=== PATIENT | female | born 1970 | race Caucasian/White ===

== ENCOUNTER 2017-07-17 20:16 | Emergency (ER) | payer SELFPAY ==
[2017-07-17 20:20] VITALS: BP 192/104; PULSE 97; RESP 18; TEMP 36.9; O2SAT 100; BMI 35.4
--- NOTE | 2017-07-17 20:26 | ED.DENTAL ---
HPI - Dental/Oral <Kary Schuster PA-C - Last Filed: 07/17/17 21:56> General Chief complaint: Dental/Oral Stated complaint: ABCESS TOOTH Time Seen by Provider: 07/17/17 20:26 Source: patient Mode of arrival: ambulatory Limitations: no limitations History of Present Illness HPI Narrative: This 47-year-old female comes in due to dental pain and concern for infection. She states that she has a long history of dental problems, but seemed okay until a week ago she began to have worsening pain again in her left back teeth. She does not have a dentist, but made an appointment for the [facility] on Wednesday. She states pain started on the left upper molar area and now can feel in her lower teeth as well. She states that this radiates into the jaw and ear area. She thinks the gums are swollen. She denies any fever. She has some allergies but no recent upper respiratory symptoms such as congestion, sinus pain or cough. She denies any other complaints today. She has been taking ibuprofen 400 mg and using MS all but still having persistent pain Related Data Home Medications Medication Instructions Recorded Confirmed [id number]-iyxprbaa-pet 07/17/17 [Anbesol Cold Sore] ibuprofen 400 mg PO 07/17/17 Previous Rx's Medication Instructions Recorded cyclobenzaprine 10 mg PO TID PRN #30 tab 09/12/15 naproxen [Naprosyn] 500 mg PO BIDCC #60 tab 09/12/15 amoxicillin-pot clavulanate 1 tab PO BID #14 tab 07/17/17 [Augmentin] Allergies Allergy/AdvReac Type Severity Reaction Status Date / Time GENERIC: NKDA - NO KNOWN Allergy Unknown Uncoded 05/26/17 11:56 DRUG ALLERGIES Review of Systems <Kary Schuster PA-C - Last Filed: 07/17/17 21:56> Review of Systems All systems reviewed & are unremarkable except as noted in HPI and below Exam <Kary Schuster PA-C - Last Filed: 07/17/17 21:56> Narrative Exam Narrative: GENERAL APPEARANCE: Patient sitting comfortably, in no distress. HEAD: No sinus TTP. EYES: PERRL, EOMI. EARS: Normal auditory canals, TMS intact with normal light reflexes. ORAL CAVITY: Left upper 2nd molar and lower molars it looks like there cavities that there may be a little bit of pulp exposed on the upper molar. There is some edema and tenderness in the surrounding gum line around the upper more. No fluctuance or drainage. THROAT: Clear. NECK/THYROID: Neck supple, full range of motion, no cervical lymphadenopathy. LUNGS: Clear to auscultation bilaterally, clear to percussion, no cough on exam. HEART: RRR without murmur, nl S1, S2, no S3 or S4. Initial Vital Signs Initial Vital Signs: Vital Signs Temperature 98.4 F 07/17/17 20:20 Pulse Rate 97 H 07/17/17 20:20 Respiratory Rate 18 07/17/17 20:20 Blood Pressure 192/104 H 07/17/17 20:20 Pulse Oximetry 100 07/17/17 20:20 <Song Burns DO - Last Filed: 07/18/17 01:17> Initial Vital Signs Initial Vital Signs: Vital Signs Temperature 98.4 F 07/17/17 20:20 Pulse Rate 97 H 07/17/17 20:20 Respiratory Rate 18 07/17/17 20:20 Blood Pressure 192/104 H 07/17/17 20:20 Pulse Oximetry 100 07/17/17 20:20 Course <Kary Schuster PA-C - Last Filed: 07/17/17 21:56> Orders Ordered: Discontinued Medications Amoxicillin/Clavulanate Potassium (Augmentin 875-125 Mg) 1 tab PO NOW ONE Stop: 07/17/17 20:55 Last Admin: 07/17/17 21:02 Dose: 1 tab Ibuprofen (Advil) 400 mg PO NOW ONE Stop: 07/17/17 20:55 Last Admin: 07/17/17 21:02 Dose: 400 mg Lorazepam (Ativan) 1 mg PO NOW ONE Stop: 07/17/17 20:50 Vital Signs - 8 hr 07/17/17 20:20 07/17/17 21:24 Temperature 98.4 F Pulse Rate 97 H 80 Respiratory Rate 18 16 Blood Pressure 192/104 H 166/72 H Pulse Oximetry 100 99 <DO Gagan Waters Last Filed: 07/18/17 01:17> Orders Ordered: Discontinued Medications Amoxicillin/Clavulanate Potassium (Augmentin 875-125 Mg) 1 tab PO NOW ONE Stop: 07/17/17 20:55 Last Admin: 07/17/17 21:02 Dose: 1 tab Ibuprofen (Advil) 400 mg PO NOW ONE Stop: 07/17/17 20:55 Last Admin: 07/17/17 21:02 Dose: 400 mg Lorazepam (Ativan) 1 mg PO NOW ONE Stop: 07/17/17 20:50 Vital Signs - 8 hr 07/17/17 20:20 07/17/17 21:24 Temperature 98.4 F Pulse Rate 97 H 80 Respiratory Rate 18 16 Blood Pressure 192/104 H 166/72 H Pulse Oximetry 100 99 Discharge Plan Departure Patient Disposition: Home, Self-Care Clinical Impression: Infected dental caries Discharge Date/Time: 07/17/17 21:24 Interventions: ED Discharge Assessment Last Done: 07/17/17 21:24 Activity Restrictions/Additional Instructions: Increase your Ibuprofen to 800mg every 8 hours with food. 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 Continue the ambesol (you can put it on the gauze pads I gave you and hold it between the sore teeth.) Return if you have any acutely worsening symptoms such as fever or facial swelling Prescriptions: New amoxicillin-pot clavulanate [Augmentin] 875-125 mg tablet 1 tab PO BID Qty: 14 RF: 0 No Action cyclobenzaprine 10 MG tablet 10 mg PO TID PRNQty: 30 RF: 0 naproxen [Naprosyn] 500 MG tablet 500 mg PO BIDCC Qty: 60 RF: 0 megftnzsm-tzesukr-kkifvrcd-pet [Anbesol Cold Sore] 20-3-1-64.9 % Ointment RF: 0 ibuprofen 400 mg Tablet 400 mg PO RF: 0 Referrals: [facility] [Other] <Song Burns DO - Last Filed: 07/18/17 01:17> Cosign ED Attending Mayte Attestation: I was immediately available in the department for consultation. Documentation has been reviewed. I agree with assessment and plan.
[2017-07-17] MEDS: AMOXICILLIN/CLAV 875/125 MG 1 TAB PO (21:02)
[2017-07-17] MEDS: IBUPROFEN 400 MG TABLET PO (21:02)
[2017-07-17 21:24] VITALS: BP 166/72; PULSE 80; RESP 16; O2SAT 99
== END 2017-07-17 21:24 | disposition home or self-care (01) ==
PROVIDERS: Emergency Provider Internal Medicine; Family Provider Family Medicine; PCP Family Medicine
DX: K02.9 Dental caries, unspecified (principal)
CPT/HCPCS: 99282; 99283

== ENCOUNTER 2017-10-02 18:08 | Emergency (ER) | payer SELFPAY ==
[2017-10-02 18:15] VITALS: BP 143/90; PULSE 91; RESP 20; TEMP 36.2; O2SAT 98
--- NOTE | 2017-10-02 19:35 | ED_ITS ---
HPI - Back Pain/Injury <Kary Schuster PA-C - Last Filed: 10/02/17 22:05> General Chief Complaint: Back Pain/Injury Stated Complaint: back pain worstening Time Seen by Provider: 10/02/17 19:33 Source: patient Mode of arrival: ambulatory Limitations: no limitations History of Present Illness HPI Narrative: This 47-year-old female comes in due to worsening left-sided back pain that radiates around to her flank and lower abdomen/groin area. She states that this started about 6 days ago, and thought it was just her usual menstrual cramps that she feels in her back. This seemed to get better, but then has gotten worse again in the last few days. She states that she has the pain constantly, but it is worse with movement. She states that she has not had any new trauma. She does bend and lift at work, but has not had any pain with that, actually awoke with the pain initially. She states that she has not had any nausea or vomiting. Denies fever. She denies radiation of pain into the extremities, no paresthesia or weakness. She denies any new bowel or bladder dysfunction. She denies any urinary symptoms or hematuria. She denies any possibility of (partner has had vasectomy). She describes the pain as spasmodic, like labor. She denies any other symptoms such as chest pain or dyspnea on systems review Related Data Home Medications Medication Instructions Recorded Confirmed [id number]-dajecdcz-pet 07/17/17 [Anbesol Cold Sore] ibuprofen 400 mg PO 07/17/17 Previous Rx's Medication Instructions Recorded cyclobenzaprine 10 mg PO TID PRN #30 tab 09/12/15 naproxen [Naprosyn] 500 mg PO BIDCC #60 tab 09/12/15 amoxicillin-pot clavulanate 1 tab PO BID #14 tab 07/17/17 [Augmentin] cyclobenzaprine 10 mg PO Q8H PRN #10 tab 10/02/17 Allergies Allergy/AdvReac Type Severity Reaction Status Date / Time GENERIC: NKDA - NO KNOWN Allergy Unknown Uncoded 05/26/17 11:56 DRUG ALLERGIES Review of Systems <Kary Schuster PA-C - Last Filed: 10/02/17 22:05> Review of Systems All systems reviewed & are unremarkable except as noted in HPI and below PFSH <Kary Schuster PA-C - Last Filed: 10/02/17 22:05> Comment: Rare ETOH, denies street drugs Exam <Kary Schuster PA-C - Last Filed: 10/02/17 22:05> Narrative Exam Narrative: GENERAL APPEARANCE: Patient appears mildly uncomfortable, in NAD HEENT: PERRL, EOMI, no scleral icterus NECK: Supple LUNGS: Clear to auscultation bilaterally. HEART: Rate and rhythm regular, normal S1 and S2, no S3 or S4. ABDOMEN: Soft, nondistended, bowel sounds present x 4 quadrants, no masses palpable, no hepatosplenomegaly. No right CVAT. Mild tenderness inferior to the left CVA, also moderate tenderness over the left flank and left lateral lower quadrant. No rebound or guarding EXTREMITIES: No edema, no cyanosis DERMATOLOGIC: No jaundice or exanthem NEUROLOGIC: Alert and oriented with normal speech and coordination MS: No point tenderness over LS spine, mild tenderness over L. inferior L/S musculature laterally. Following medications normal sit to stand and gait Initial Vital Signs Initial Vital Signs: Vital Signs Temperature 97.1 F L 10/02/17 18:15 Pulse Rate 91 H 10/02/17 18:15 Respiratory Rate 20 10/02/17 18:15 Blood Pressure 143/90 H 10/02/17 18:15 Pulse Oximetry 98 10/02/17 18:15 <Capo hSields DO - Last Filed: 10/02/17 22:10> Initial Vital Signs Initial Vital Signs: Vital Signs Temperature 97.1 F L 10/02/17 18:15 Pulse Rate 91 H 10/02/17 18:15 Respiratory Rate 20 10/02/17 18:15 Blood Pressure 143/90 H 10/02/17 18:15 Pulse Oximetry 98 10/02/17 18:15 Course <TONIA Daily Last Filed: 10/02/17 22:05> Additional Information: Reviewed normal CT findings with patient. She does have some chronic back pain typically worsened by menses, and does lift and bend frequently at work. Suspect strain and spasm. Also discussed that there could be other contributors. She is feeling significantly better after medications. We had planned to give Flexeril which she states has been helpful in the past but felt better prior, so we sent her home with a prepack of this for tonight. She agreed to return if any new or acutely worsening symptoms. Orders Ordered: ED Orders 10/02/17 19:50 CT kidney ureter bladder (KUB) Stat 10/02/17 20:25 Urinalysis and Microscopic Stat Discontinued Medications Cyclobenzaprine HCl (Flexeril) 10 mg PO NOW ONE Stop: 10/02/17 20:38 Last Admin: 10/02/17 20:59 Dose: Cyclobenzaprine HCl (Flexeril 10 Mg Prepack) 1 bottle MISC SEEINSTR ONE Stop: 10/02/17 21:02 Last Admin: 10/02/17 21:04 Dose: 1 bottle Cyclobenzaprine HCl (Flexeril 10 Mg Prepack) 1 bottle MISC SEEINSTR ONE Stop: 10/02/17 21:03 Last Admin: 10/02/17 21:03 Dose: Not Given Diphenhydramine HCl (Benadryl) 25 mg PO NOW ONE Stop: 10/02/17 19:48 Last Admin: 10/02/17 20:27 Dose: 25 mg Ketorolac Tromethamine (Toradol) 60 mg IM NOW ONE Stop: 10/02/17 19:48 Last Admin: 10/02/17 20:28 Dose: 60 mg Oxycodone/Acetaminophen (Percocet 5/325) 1 tab PO NOW ONE Stop: 10/02/17 19:48 Last Admin: 10/02/17 20:27 Dose: 1 tab Vital Signs - 8 hr 10/02/17 18:15 10/02/17 21:18 Temperature 97.1 F L Pulse Rate 91 H 90 Respiratory Rate 20 16 Blood Pressure 143/90 H 138/88 H Pulse Oximetry 98 100 <Capo Shields, DO - Last Filed: 10/02/17 22:10> Orders Ordered: ED Orders 10/02/17 19:50 CT kidney ureter bladder (KUB) Stat 10/02/17 20:25 Urinalysis and Microscopic Stat Discontinued Medications Cyclobenzaprine HCl (Flexeril) 10 mg PO NOW ONE Stop: 10/02/17 20:38 Last Admin: 10/02/17 20:59 Dose: Cyclobenzaprine HCl (Flexeril 10 Mg Prepack) 1 bottle MISC SEEINSTR ONE Stop: 10/02/17 21:02 Last Admin: 10/02/17 21:04 Dose: 1 bottle Cyclobenzaprine HCl (Flexeril 10 Mg Prepack) 1 bottle MISC SEEINSTR ONE Stop: 10/02/17 21:03 Last Admin: 10/02/17 21:03 Dose: Not Given Diphenhydramine HCl (Benadryl) 25 mg PO NOW ONE Stop: 10/02/17 19:48 Last Admin: 10/02/17 20:27 Dose: 25 mg Ketorolac Tromethamine (Toradol) 60 mg IM NOW ONE Stop: 10/02/17 19:48 Last Admin: 10/02/17 20:28 Dose: 60 mg Oxycodone/Acetaminophen (Percocet 5/325) 1 tab PO NOW ONE Stop: 10/02/17 19:48 Last Admin: 10/02/17 20:27 Dose: 1 tab Vital Signs - 8 hr 10/02/17 18:15 10/02/17 21:18 Temperature 97.1 F L Pulse Rate 91 H 90 Respiratory Rate 20 16 Blood Pressure 143/90 H 138/88 H Pulse Oximetry 98 100 MDM - Back Pain/Injury <Kary Schuster PA-C - Last Filed: 10/02/17 22:05> Lab Data Lab Results 10/02/17 Range/Units 20:25 Urine Color Yellow Urine Appearance Clear Urine pH 5.0 (4.5-8.0) Ur Specific [place] 1.025 (1.000-1.035) Urine Protein Negative (Negative) Urine Glucose (UA) Negative (Normal) g/dL Urine Ketones Negative (NEGATIVE) Urine Occult Blood Trace-lysed (Negative) Urine Nitrate Negative (Negative) Urine Bilirubin Negative (NEGATIVE) Urine Urobilinogen 0.2 (0.2) E.U./dL Ur Leukocyte Esterase Negative (NEGATIVE) Urine RBC 1-5/hpf (0-5/HPF) Urine WBC None seen (0-5/HPF) Ur Squamous Epith Cells 1-5 /hpf Urine Bacteria None seen (None) Urine Mucus 1+ H (Negative) Ur Culture Indicated? Not Reportable Micro UA Comment Not Reportable Imaging Data CT scan - abdomen: Radiologist's impression: View Report History [address] [address] [address] Scan Report Signed Patient: Nicky Munoz MR#: [id number] : 1970 Acct:[id number] Age/Sex: 47 / F Date of Service: 10/02/17 Loc: ED Accession Number: [id number] Procedure: CT kidney ureter bladder (KUB) Ordering Provider: Kary Schuster P.A-C PROCEDURE: CT KIDNEY URETER BLADDER (KUB) INDICATIONS: L. flank/groin pain, ?stone TECHNIQUE: Noncontrast 5 mm thick sections acquired from the diaphragms to the symphysis. 5 mm thick coronal and sagittal reformats were then performed. For radiation dose reduction, the following was used: automated exposure control, adjustment of mA and/or kV according to patient size. COMPARISON: None. FINDINGS: Image quality: Excellent. Lung bases: Lung bases are clear. Heart size is normal. Urinary system: Both kidneys are normal in size. No kidney stones. No hydronephrosis or perinephric fat stranding. Both ureters appear non-dilated throughout their expected courses. Bladder wall thickness is normal; no calcified bladder stones. Other solid organs: Liver is normal in size. Gallbladder is within normal limits. Pancreas is normal in contours. Spleen is normal in size. No adrenal nodules. Peritoneum and bowel: Unenhanced bowel loops demonstrate normal wall thickness and caliber. No free fluid or air. Normal appendix. Nodes and vessels: No retroperitoneal or mesenteric adenopathy by size criteria. Aorta and inferior vena cava are normal in caliber. Abdominal wall: No ventral hernias. Pelvis: No free pelvic fluid. No inguinal hernias or adenopathy. Bones: No suspicious bony lesions. No vertebral body compression fractures. IMPRESSION: 1. No evidence of urinary tract calcification, nor obstruction. 2. Normal appendix. Dictated by: Ayden Levi M.D. on 10/02/2017 at 20:07 Approved by: Ayden Levi M.D. on 10/02/2017 at 20:08 <Capo Shields DO - Last Filed: 10/02/17 22:10> Lab Data Lab Results 10/02/17 Range/Units 20:25 Urine Color Yellow Urine Appearance Clear Urine pH 5.0 (4.5-8.0) Ur Specific [place] 1.025 (1.000-1.035) Urine Protein Negative (Negative) Urine Glucose (UA) Negative (Normal) g/dL Urine Ketones Negative (NEGATIVE) Urine Occult Blood Trace-lysed (Negative) Urine Nitrate Negative (Negative) Urine Bilirubin Negative (NEGATIVE) Urine Urobilinogen 0.2 (0.2) E.U./dL Ur Leukocyte Esterase Negative (NEGATIVE) Urine RBC 1-5/hpf (0-5/HPF) Urine WBC None seen (0-5/HPF) Ur Squamous Epith Cells 1-5 /hpf Urine Bacteria None seen (None) Urine Mucus 1+ H (Negative) Ur Culture Indicated? Not Reportable Micro UA Comment Not Reportable Discharge Plan Departure Patient Disposition: Home Clinical Impression: Low back pain, Muscle spasm Discharge Date/Time: 10/02/17 21:19 Interventions: ED Discharge Assessment Last Done: 10/02/17 21:18 Instructions: DI for Low Back Pain Activity Restrictions/Additional Instructions: Your CT scan did not show any acute problem today such as a kidney stone that seems to be causing your back pain. Given your history, this may be an exacerbation of that pain along with muscle spasm. Since you are feeling better , it is okay to monitor at home. Starting tomorrow, take 800 mg of ibuprofen every 8 hr, and you can use the cyclobenzaprine (Flexeril) as needed for spasm. Do not drive while taking that as it may make you sleepy. Gentle walking is okay, but please avoid bending, twisting, and lifting for the next few days. You should follow up with your PCP for recheck to determine whether any further treatment or testing is necessary, i.e. for pelvic problems since your back pain seems to be worse related to your menses. Please return as we talked about if you have any acutely worsening symptoms, or new symptoms such as fever or vomiting Prescriptions: New cyclobenzaprine 10 mg tablet 10 mg PO Q8H PRN (Reason: muscle spasm) Qty: 10 RF: 0 No Action cyclobenzaprine 10 MG tablet 10 mg PO TID PRNQty: 30 RF: 0 naproxen [Naprosyn] 500 MG tablet 500 mg PO BIDCC Qty: 60 RF: 0 lyaaobclv-gpuzlvh-nabnoxzu-pet [Anbesol Cold Sore] 20-3-1-64.9 % Ointment RF: 0 ibuprofen 400 mg Tablet 400 mg PO RF: 0 amoxicillin-pot clavulanate [Augmentin] 875-125 mg tablet 1 tab PO BID Qty: 14 RF: 0 Referrals: Ronan Lindsay MD [Primary Care Provider] - <Capo Shields DO - Last Filed: 10/02/17 22:10> Cosign ED Attending Mayte Attestation: I was available for consultation during this patient's emergency department encounter
--- NOTE | 2017-10-02 19:50 | DI.CT.S_ITS ---
PROCEDURE: CT KIDNEY URETER BLADDER (KUB) INDICATIONS: L. flank/groin pain, ?stone TECHNIQUE: Noncontrast 5 mm thick sections acquired from the diaphragms to the symphysis. 5 mm thick coronal and sagittal reformats were then performed. For radiation dose reduction, the following was used: automated exposure control, adjustment of mA and/or kV according to patient size. COMPARISON: None. FINDINGS: Image quality: Excellent. Lung bases: Lung bases are clear. Heart size is normal. Urinary system: Both kidneys are normal in size. No kidney stones. No hydronephrosis or perinephric fat stranding. Both ureters appear non-dilated throughout their expected courses. Bladder wall thickness is normal; no calcified bladder stones. Other solid organs: Liver is normal in size. Gallbladder is within normal limits. Pancreas is normal in contours. Spleen is normal in size. No adrenal nodules. Peritoneum and bowel: Unenhanced bowel loops demonstrate normal wall thickness and caliber. No free fluid or air. Normal appendix. Nodes and vessels: No retroperitoneal or mesenteric adenopathy by size criteria. Aorta and inferior vena cava are normal in caliber. Abdominal wall: No ventral hernias. Pelvis: No free pelvic fluid. No inguinal hernias or adenopathy. Bones: No suspicious bony lesions. No vertebral body compression fractures. IMPRESSION: 1. No evidence of urinary tract calcification, nor obstruction. 2. Normal appendix. Dictated by: Ayden Levi M.D. on 10/02/2017 at 20:07 Approved by: Ayden Levi M.D. on 10/02/2017 at 20:08
[2017-10-02] MEDS: diphenhydrAMINE 25 MG TABLET PO (20:27)
[2017-10-02] MEDS: OXYCODONE/ACETAMINOPHEN 5/325 TABLET 1 TAB PO (20:27)
[2017-10-02] MEDS: KETOROLAC 60 MG/2 ML VIAL IM (20:28)
[2017-10-02 20:37] LABS: Bacteria Urine None Seen; WBC Urine None Seen (0-5/HPF)
[2017-10-02 20:44] LABS: Appearance Urine UA CLEAR; Bilirubin Urine UA NEGATIVE (NEGATIVE); Color Urine UA YELLOW; Glucose Urine UA NEGATIVE (Normal); Ketones Urine UA NEGATIVE (NEGATIVE); Leukocyte Esterase Urine UA NEGATIVE (NEGATIVE); Nitrite Urine UA Negative (Negative); Occult Blood Urine UA TRACE-LYSED (Negative); Protein Urine UA NEGATIVE (Negative); Specific Gravity Urine UA 1.025 (1.000-1.035); Urobilinogen Urine UA 0.2 E.U./dL (0.2)
[2017-10-02 20:51] LABS: Mucus Urine 1+ (Negative); RBC Urine 1-5/HPF (0-5/HPF); Squamous Epithelial Cell Urine 1-5 /HPF
[2017-10-02] MEDS: CYCLOBENZAPRINE 10 MG PREPACK 1 BOTTLE MISC (21:04)
[2017-10-02 21:18] VITALS: BP 138/88; PULSE 90; RESP 16; O2SAT 100
== END 2017-10-02 21:19 | disposition home or self-care (01) ==
PROVIDERS: Emergency Provider Internal Medicine; Family Provider Family Medicine; PCP Family Medicine
DX: M62.830 Muscle spasm of back (principal); M54.5 Low back pain
CPT/HCPCS: 74176; 81001; 81025; 96372; 99282; 99284; J1885

== ENCOUNTER 2022-02-27 14:41 | Emergency (ER) | payer OTHER, SELFPAY ==
[2022-02-27 14:47] VITALS: BP 180/120; PULSE 86; RESP 16; TEMP 36.5; O2SAT 96; BMI 36.8
--- NOTE | 2022-02-27 17:16 | PC.NURSE ---
Pt reports 4 days of left groin/thigh pain/seven horse. Had been moving stuff around the garage. States lying down decreases the pain, but then my back goes out. Took 1000mg ibuprofen at 1400. Denies numbness/tingling.
--- NOTE | 2022-02-27 18:17 | DI.RAD.S_ITS ---
PROCEDURE: XR LUMBAR SPINE 2-3V INDICATIONS: low back pain w/ left sciatica TECHNIQUE: 3 views of the lumbar spine were acquired. COMPARISON: None. FINDINGS: Bones: 5 hjz-tbe-[id number] vertebrae are present. There is normal bony alignment. No vertebral body compression fractures. No suspicious bony lesions. Multilevel disc space narrowing degenerative endplate changes are seen. There is multilevel facet hypertrophy. Soft tissues: Overlying bowel gas pattern is normal. No suspicious soft tissue calcifications. IMPRESSION: Multilevel spondylosis. No acute osseous abnormality. If the symptoms persist, consider cross sectional imaging such as MRI or CT for further assessment. Approved by: Nico Ennis M.D. on 02/27/2022 at 19:14
[2022-02-27] MEDS: OXYCODONE/ACETAMINOPHEN 5/325 TABLET 1 TAB PO (18:34)
[2022-02-27] MEDS: methocarbamoL 500 MG TABLET 750 MG PO (18:34)
[2022-02-27] MEDS: predniSONE 20 MG TABLET 40 MG PO (18:34)
[2022-02-27] MEDS: KETOROLAC 30 MG/ML VIAL IM (18:34)
--- NOTE | 2022-02-27 19:01 | ED.EXTPRO ---
HPI - Extremity Problem <Patricia Whatley [place]aby, UTILITY SYSTEMS REPAIRER OPERATOR - Last Filed: 02/27/22 19:51> General Chief complaint: Extremity Problem,Nontraumatic Stated complaint: LT leg feels like charley horse T-4 Time Seen by Provider: 02/27/22 18:16 Mode of arrival: Family Vehicle History of Present Illness HPI Narrative: This is a 51-year-old female who presents to the emergency department, my exam is approximately 6 hours after she checked in today, complains of working in her yd 4 days ago with worsening low back pain and anterior leg pain with radiation from her low back over the last 4 days. She denies weakness, states it feels like a Charley horse and muscle spasm. She denies any urinary retention or incontinence, denies any groin numbness, denies any fever, chills, upper respiratory infection, denies any weakness, states that she is ambulatory but sitting up painful, leg lift is even more painful. She denies history of alcohol or substance abuse, denies fever, chills, numbness or tingling anywhere. Related Data Home Medications Medication Instructions Recorded Confirmed benzocaine 20 %-camphor 3 07/17/17 %-allantoin 1%-petrolatum 64.9% top ointment (Anbesol Cold Sore) ibuprofen 400 mg tablet 400 mg PO 07/17/17 Previous Rx's Medication Instructions Recorded cyclobenzaprine 10 mg tablet 10 mg PO TID PRN #30 tabs 09/12/15 naproxen 500 mg tablet (Naprosyn) 500 mg PO BIDCC #60 tabs 09/12/15 amoxicillin 875 mg-potassium 1 tab PO BID #14 tabs 07/17/17 clavulanate 125 mg tablet (Augmentin) cyclobenzaprine 10 mg tablet 10 mg PO Q8H PRN muscle spasm #10 10/02/17 tabs lidocaine 5 % topical patch 1 patch topical DAILY PRN pain #15 02/27/22 (Lidoderm) ea methocarbamol 750 mg tablet 750 mg PO Q8H PRN muscle spasm #20 02/27/22 tabs naproxen 500 mg tablet 500 mg PO BID PRN pain #20 tabs 02/27/22 prednisone 20 mg tablet 20 mg PO DAILY #5 tabs 02/27/22 Allergies Allergy/AdvReac Type Severity Reaction Status Date / Time morphine Allergy ITCHING Verified 02/27/22 14:50 GENERIC: NKDA - NO KNOWN Allergy Unknown Uncoded 05/26/17 11:56 DRUG ALLERGIES Review of Systems <NAVI Silver - Last Filed: 02/27/22 19:51> Review of Systems ROS Unobtainable: All systems reviewed & are unremarkable except as noted in HPI and below Patient History <NAVI Silver - Last Filed: 02/27/22 19:51> Medical History Chronic back pain Fracture of fifth toe, left, closed Seasonal allergies Family History Mother Age: 77 Heart disease Social History Smoking Status: Current every day smoker Smoking Status: Current every day smoker alcohol intake frequency: holidays/special occasions only Substance Use Type: does not use Exam <NAVI Silver - Last Filed: 02/27/22 19:51> Narrative Exam Narrative: Reviewed vitals signs and nursing notes. General: cooperative, comfortable, in no acute distress, well groomed HEENT: symmetrical facial expressions, moist mucous membranes Cardiovascular: regular rate and rhythm, no peripheral edema, warm extremities Respiratory: normal effort, able to speak in complete sentences, without wheezing, stridor, or abnormal breath sounds. No retractions or tachypnea. GI: abdomen soft, nontender to palpation, nondistended, without masses, rebound tenderness or exquisite tenderness with exam. MSK: moves all extremities, neurovascularly intact, no weakness, normal tone no tenderness along lumbar spine, leg length exacerbates symptoms on left and right, hematoma or other palpable abnormality, no step-offs Skin: brisk capillary refill, without pallor or erythema Neuro: normal speech and cognition, A&O x3, ambulatory, clear speech Psych: mental status is grossly normal, congruent mood, normal affect, pleasant and cooperative Initial Vital Signs Initial Vital Signs: Vital Signs Temperature 97.7 F 02/27/22 14:47 Pulse Rate 86 02/27/22 14:47 Respiratory Rate 16 02/27/22 14:47 Blood Pressure 180/120 H 02/27/22 14:47 Pulse Oximetry 96 02/27/22 14:47 Oxygen Delivery Method 02/27/22 14:47 <Fatuma Rosario DO - Last Filed: 03/06/22 07:49> Initial Vital Signs Initial Vital Signs: Vital Signs Temperature 97.7 F 02/27/22 14:47 Pulse Rate 86 02/27/22 14:47 Respiratory Rate 16 02/27/22 14:47 Blood Pressure 180/120 H 02/27/22 14:47 Pulse Oximetry 96 02/27/22 14:47 Oxygen Delivery Method 02/27/22 14:47 Course <NAVI Silver - Last Filed: 02/27/22 19:51> Orders Ordered: Discontinued Medications Ketorolac Tromethamine (Ketorolac 30 Mg/Ml Vial) 30 mg IM NOW ONE Stop: 02/27/22 18:17 Last Admin: 02/27/22 18:34 Dose: 30 mg Documented By: NR Methocarbamol (Methocarbamol 500 Mg Tablet) 750 mg PO NOW ONE Stop: 02/27/22 18:18 Last Admin: 02/27/22 18:34 Dose: 750 mg Documented By: NR Oxycodone/Acetaminophen (Oxycodone/Acetaminophen 5/325 Tablet) 1 tab PO NOW ONE Stop: 02/27/22 18:27 Last Admin: 02/27/22 18:34 Dose: 1 tab Documented By: NR Prednisone (Prednisone 20 Mg Tablet) 40 mg PO NOW ONE Stop: 02/27/22 18:17 Last Admin: 02/27/22 18:34 Dose: 40 mg Documented By: NR Vital Signs Vital signs: Vital Signs - 8 hr 02/27/22 14:47 Temperature 97.7 F Pulse Rate 86 Respiratory Rate 16 Blood Pressure 180/120 H Pulse Oximetry 96 Oxygen Delivery Method Room Air <Fatuma Rosario DO - Last Filed: 03/06/22 07:49> Orders Ordered: Discontinued Medications Ketorolac Tromethamine (Ketorolac 30 Mg/Ml Vial) 30 mg IM NOW ONE Stop: 02/27/22 18:17 Last Admin: 02/27/22 18:34 Dose: 30 mg Documented By: NR Methocarbamol (Methocarbamol 500 Mg Tablet) 750 mg PO NOW ONE Stop: 02/27/22 18:18 Last Admin: 02/27/22 18:34 Dose: 750 mg Documented By: NR Oxycodone/Acetaminophen (Oxycodone/Acetaminophen 5/325 Tablet) 1 tab PO NOW ONE Stop: 02/27/22 18:27 Last Admin: 02/27/22 18:34 Dose: 1 tab Documented By: NR Prednisone (Prednisone 20 Mg Tablet) 40 mg PO NOW ONE Stop: 02/27/22 18:17 Last Admin: 02/27/22 18:34 Dose: 40 mg Documented By: NR Vital Signs Vital signs: Vital Signs - 8 hr 02/27/22 14:47 Temperature 97.7 F Pulse Rate 86 Respiratory Rate 16 Blood Pressure 180/120 H Pulse Oximetry 96 Oxygen Delivery Method Room Air MDM - Extremity (Nontraumatic) <Patricia Tee [facility] - Last Filed: 02/27/22 19:51> Imaging Data lumbar xr: Radiologist's Impression: PROCEDURE:? XR LUMBAR SPINE 2-3V ? INDICATIONS:? low back pain w/ left sciatica ? TECHNIQUE:? 3 views of the lumbar spine were acquired.? ? COMPARISON:? None. ? FINDINGS:? ? Bones:? 5 [id number]-[id number] vertebrae are present.? There is normal bony alignment.? No vertebral body compression fractures.? No suspicious bony lesions.? Multilevel disc space narrowing degenerative endplate changes are seen.? There is multilevel facet hypertrophy. ? Soft tissues:? Overlying bowel gas pattern is normal.? No suspicious soft tissue calcifications.? ? IMPRESSION:? Multilevel spondylosis.? No acute osseous abnormality. If the symptoms persist, consider cross sectional imaging such as MRI or CT for further assessment. ? ? ? Approved by: Nico Ennis M.D. on 02/27/2022 at 19:14? [facility] Narrative Medical decision making narrative: CC: Worsening back pain after activity 4 days ago with left-sided eye pain his is a 51-year-old female who presents to the emergency department, my exam is approximately 6 hours after she checked in today, complains of working in her yd 4 days ago with worsening low back pain and anterior leg pain with radiation from her low back over the last 4 days. She denies weakness, states it feels like a Charley horse and muscle spasm. Differential diagnoses include, but are not limited to: acute fracture, cauda equina, AAA, viscus perforation, osteomyelitis or epidural abscess, renal colic, pyelonephritis. Disc injury/herniation w/radiculopathy, degenerative arthritis, spinal stenosis, trauma, ligamental injury, paraspinal or other muscular strain, chronic pain, osteoarthritis, epidural metastases, and critical cord compression. I have reviewed the patient's vital signs and nursing notes as well as prior records if available. Lab test results independently reviewed, pertinent findings: My imaging interpretation: Lumbar x-ray is negative for acute fracture, does appear to have multilevel degenerative disc disease Exam and history significant for: no trauma, no bony tenderness to palpation, no bowel or urinary incontinence or retention, no saddle anesthesia, without distal weakness, decreased reflexes or urinary symptoms. Pt is nontoxic appearing. Patient has soft tissue tenderness to palpation. Pt is neurovascularly intact distally, afebrile, without immunosuppression or evidence of infection, peritoneal signs, hypertensive crisis, incontinence, or menengial signs. Patient is treated with prednisone, Toradol, Robaxin and Percocet Patient's symptoms improved over duration of stay with above-stated therapies. Pt is nontoxic appearing. Patient has soft tissue tenderness to palpation. Pt is neurovascularly intact distally, afebrile, without immunosuppression or evidence of infection, peritoneal signs, hypertensive crisis, incontinence, or menengial signs. This is most likely lumbar radiculopathy with an exacerbation of her low back degenerative disc disease with increased activity 4 days ago. She is without recent trauma, afebrile, will treat for sciatica with lidocaine patches, muscle relaxer, naproxen, prednisone, and encouraged her to follow-up with PCP for referral to physical therapy. Imaging does not show any acute fracture or obvious abnormality. No back pain red flags on history or physical. Disposition: see below, along with detailed discharge instructions that have been reviewed with the patient as well as indications for ED re-evaluation and additional outpatient follow-up. Questions are addressed and there is agreement with the plan and for follow-up. Patient is appropriate for outpatient management. MIPS: This encounter doesn't have any diagnosis associated with MIPS criteria. IPatricia ARNP, personally performed the services described in the documentation, and it accurately records my words and actions. I collaborated with the ED attending physician for SAMANTHA level 2, 3, and some level 4s as appropriate. Discharge Plan Departure Patient Disposition: Home Clinical Impression: Acute left lumbar radiculopathy Instructions: DI for Back Pain With Sciatica Activity Restrictions/Additional Instructions: *You have been diagnosed with this is most likely sciatica down your left leg this is likely coming from your low back. Please take the anti-inflammatories every 12 food water, take Tylenol in addition to that as needed, use lidocaine patches or other topical, take the steroid starting tomorrow, and muscle relaxers every 8 hours as needed for spasm. Follow-up with your primary care provider and ask for referral to physical therapy if this continues. Please return to the emergency department if you have urinary incontinence or retention develop a fever chills or other symptoms. *What to do: *Please continue to take your regular medications as directed. [x ] New medication prescriptions sent to your pharmacy: [[facility] [place] ] [ ] New medication written as a paper prescription [ ] No new medications given *Please follow up with your primary care provider in 2-3 days, call for an appointment. Let them know you were seen in the Emergency Department and that we asked that you be seen for follow-up. We will electronically transmit a record of today's note if your PCP is in our system *If you do not have a primary care provider please contact [phone] to establish care with one of the [facility] primary care providers. *Return to Emergency Department if you should have any new, worsening, or concerning symptoms, such as [fever greater than 101F, chills, worsening pain, persistent vomiting or other bothersome symptoms]. Prescriptions: New prednisone 20 mg tablet 20 mg PO DAILY Qty: 5 0RF methocarbamol 750 mg tablet 750 mg PO Q8H PRN (Reason: muscle spasm) Qty: 20 0RF naproxen 500 mg tablet 500 mg PO BID PRN (Reason: pain) Qty: 20 0RF lidocaine [Lidoderm] 5 % adhesive patch,medicated 1 patch topical DAILY PRN (Reason: pain) Qty: 15 0RF Rx Instructions: leave on most painful area for up to 12 hrs No Action cyclobenzaprine 10 MG tablet 10 mg PO TID PRNQty: 30 0RF naproxen [Naprosyn] 500 MG tablet 500 mg PO BIDCC Qty: 60 0RF bqzzsylfl-oolkotm-nctzheud-pet [Anbesol Cold Sore] 20-3-1-64.9 % Ointment ibuprofen 400 mg Tablet 400 mg PO amoxicillin-pot clavulanate [Augmentin] 875-125 mg tablet 1 tab PO BID Qty: 14 0RF cyclobenzaprine 10 mg tablet 10 mg PO Q8H PRN (Reason: muscle spasm) Qty: 10 0RF Rx Instructions: do not drive Referrals: Guillermo Arguello MD [Primary Care Provider] - Stand Alone Forms: Patient Portal/API <Fatuma Rosario DO - Last Filed: 03/06/22 07:49> Cosign ED Attending Judyature Attestation: I was immediately available in the department for consultation. Documentation has been reviewed.
== END 2022-02-27 19:20 | disposition home or self-care (01) ==
PROVIDERS: Emergency Provider Nurse Practitioner Critical Care Medicine; Family Provider Family Medicine; PCP Internal Medicine
DX: M54.16 Radiculopathy, lumbar region (principal)
CPT/HCPCS: 72100; 96372; 99283; J1885